=== PATIENT | male | born 1950 | race Caucasian/White ===

== ENCOUNTER 2016-08-15 06:13 | Observation (INO) | payer BC ==
[2016-08-14 11:24] VITALS: BP 122/86
[2016-08-14 11:52] LABS: HEMOGLOBIN 11.8 g/dL (13.7-18.0)
[2016-08-14 11:59] LABS: ASPARTATE AMINO TRANSFERASE 50 U/L (15-37); BLOOD UREA NITROGEN 13 mg/dL (7-18)
[~2016-08-15] VITALS: Ht 177.8 cm; Wt 81.8 kg
[~2016-08-15 06:13] MED LIST: AMIO200T42 PO; APIX5TAB PO; ASPI-496 PO; ATOR40TA78 PO; DIGO125T PO; METO25TA35 PO; TELM40TA PO
[2016-08-15] MEDS ORDERED: SODIUM CHLORIDE 0.9% 1,000 ML IV SCH (06:25)
[2016-08-15] MEDS ORDERED: HEPARIN 1,000 UNITS/ML, 10ML ONE (07:35)
[2016-08-15] MEDS ORDERED: FENTANYL PF 250 MCG/5ML ONE (07:43)
[2016-08-15] MEDS ORDERED: MIDAZOLAM 1 MG/ML, 2ML ONE (07:43)
[2016-08-15] MEDS ORDERED: DEXAMETHASONE 4 MG/ML, 1ML ONE (08:07)
[2016-08-15] MEDS ORDERED: SUCCINYLCHOLINE 20 MG/ML, 10ML ONE (08:07)
[2016-08-15] MEDS ORDERED: PHENYLEPHRINE 10 MG/ML ONE (08:07)
[2016-08-15] MEDS ORDERED: PROPOFOL 10 MG/ML, 20ML ONE (08:07)
[2016-08-15] MEDS ORDERED: ONDANSETRON 2MG/ML, 2ML ONE (08:07)
[2016-08-15] MEDS ORDERED: BUPIVACAINE 0.25% ONE (08:18)
[2016-08-15] MEDS ORDERED: PROTAMINE SULFATE 10 MG/ML, 5ML ONE (10:08)
[2016-08-15] MEDS ORDERED: ZOLPIDEM 5MG TABLET PO PRN (10:30)
[2016-08-15] MEDS ORDERED: ACETAMINOPHEN 325 MG TABLET PO PRN (10:30)
[2016-08-15] MEDS: APIXABAN 5 MG TABLET PO SCH ×2 (10:30→21:32)
[2016-08-15 12:25] VITALS: BP 124/86
[2016-08-15 13:19] VITALS: BP 111/76
[2016-08-15 18:59] VITALS: BP 119/77
[2016-08-15] MEDS ORDERED: ATORVASTATIN 40 MG TABLET PO SCH (21:00)
[2016-08-15] MEDS: METOPROLOL TARTRATE 25 MG TABLET PO SCH (21:32)
[2016-08-16 02:20] VITALS: BP 112/71
[2016-08-16 06:53] VITALS: BP 109/65
[2016-08-16] MEDS: METOPROLOL TARTRATE 25 MG TABLET PO SCH (08:22)
[2016-08-16] MEDS: APIXABAN 5 MG TABLET PO SCH (08:22)
[2016-08-16] MEDS ORDERED: AMIO200T42 PO (08:50)
[2016-08-16] MEDS ORDERED: ASPIRIN 81 MG TABLET EC PO SCH (09:00)
[2016-08-16] MEDS ORDERED: AMIODARONE 200 MG TABLET PO SCH (09:00)
[2016-08-16] MEDS ORDERED: PNEUMOCOCCAL 23 VACCINE IM-VACC ONE (11:00)
== END 2016-08-16 11:30 | disposition home or self-care (01) ==
LOC: CACL 06:13 → ORIP 10:22 → 5SO 12:17 → DCLOUNGE 08-16 11:28
PROVIDERS: ADMIT Internal Medicine Cardiovascular Disease; ATTEND Internal Medicine Cardiovascular Disease
DX: I48.91 Unspecified atrial fibrillation (principal); I10 Essential (primary) hypertension; E78.00 Pure hypercholesterolemia, unspecified; Z23 Encounter for immunization
CPT/HCPCS: 36415; 71020; 80053; 85025; 85347; 85610; 85730; 90471; 90732; 93005; 93308; 93321; 93325; 93613; 93655; 93656; 93662; C1730; C1731; C1732; C1759; C1766; C1894; G0378; J0330; J1100; J1644; J2250; J2370; J2405; J2704; J2720; J3010; J3490; 93621

== ENCOUNTER → 2019-08-10 | Day surgery (SDC) | payer MEDICARE, BC ==
[~2019-08-10] VITALS: Ht 177.8 cm; Wt 78.0 kg
[~2019-08-10] MED LIST changes: -DIGO125T PO; +DIGO125T85 PO; +METO50TA82 PO; +PROPOFOL 10 MG/ML, 20ML ONE; +SODIUM CHLORIDE 0.9% 500 ML IV PRN
[2019-08-10 11:26] VITALS: BP 126/75
[2019-08-10 11:49] LABS: ANION GAP 3 mmol/L (5-15); CALCIUM 8.7 mg/dL (8.5-10.1); CHLORIDE 108 mmol/L (98-107); CREATININE 1.26 mg/dL (0.7-1.3)
[2019-08-10 11:50] LABS: BASOPHILS # (AUTO) 0.02 x10^3/uL (0-0.1); BASOPHILS % (AUTO) 0 % (0-1); EOSINOPHILS # (AUTO) 0.14 x10^3/uL (0-0.4); EOSINOPHILS % (AUTO) 3 % (1-7); LYMPHOCYTES # (AUTO) 1.45 x10^3/uL (1-3.4); LYMPHOCYTES % (AUTO) 29 % (22-44); MD NO; MEAN CORPUSCULAR HEMOGLOBIN 31.7 pg (27.5-34.5); MEAN CORPUSCULAR HGB CONC 33.8 g/dL (33.2-36.2); MEAN CORPUSCULAR VOLUME 93.7 fL (81-97); MEAN PLATELET VOLUME 9.1 fL (7.4-10.4); MONOCYTES % (AUTO) 8 % (2-9); NEUTROPHILS # (AUTO) 2.98 x10^3/uL (1.8-6.8); NEUTROPHILS % (AUTO) 60 % (42-75); PLATELET COUNT 137 x10^3/uL (130-400); RED BLOOD COUNT 5.23 x10^6/uL (4.38-5.82); RED CELL DISTRIBUTION WIDTH 13.2 % (9.4-14.8)
== END | disposition home or self-care (01) ==
LOC: CACL 10:45
PROVIDERS: ATTEND Internal Medicine Cardiovascular Disease
DX: I48.20 Chronic atrial fibrillation, unspecified (principal); E78.5 Hyperlipidemia, unspecified; Z79.01 Long term (current) use of anticoagulants; Z79.899 Other long term (current) drug therapy
CPT/HCPCS: 36415; 71046; 80048; 85025; 92960; J2704

== ENCOUNTER 2020-04-01 11:08 | Observation (INO) | payer MEDICARE, BC ==
[~2020-04-01] VITALS: Ht 177.8 cm; Wt 77.5 kg
[~2020-04-01 11:08] MED LIST changes: -PROPOFOL 10 MG/ML, 20ML ONE; -SODIUM CHLORIDE 0.9% 500 ML IV PRN
[2020-04-01] MEDS ORDERED: SODIUM CHLORIDE 0.9% 1,000 ML IV SCH (12:30)
[2020-04-01] MEDS ORDERED: ASPI-191 PO (12:42)
[2020-04-01 12:56] VITALS: BP 115/76
[2020-04-01 12:57] LABS: ANION GAP 6 mmol/L (5-15); CALCIUM 8.9 mg/dL (8.5-10.1); CHLORIDE 107 mmol/L (98-107); CREATININE 1.34 mg/dL (0.7-1.3)
[2020-04-01 13:10] LABS: BASOPHILS % (AUTO) 0 % (0-1); EOSINOPHILS % (AUTO) 3 % (1-7); LYMPHOCYTES % (AUTO) 30 % (22-44); MEAN CORPUSCULAR HEMOGLOBIN 31.1 pg (27.5-34.5); MEAN CORPUSCULAR HGB CONC 33.4 g/dL (33.2-36.2); MONOCYTES % (AUTO) 7 % (2-9); NEUTROPHILS % (AUTO) 59 % (42-75); PLATELET COUNT 137 x10^3/uL (130-400); RED BLOOD COUNT 5.38 x10^6/uL (4.38-5.82); RED CELL DISTRIBUTION WIDTH 13.5 % (9.4-14.8)
[2020-04-01 13:11] LABS: MD NO
[2020-04-01] MEDS ORDERED: MIDAZOLAM 1 MG/ML, 2ML ONE (13:19)
[2020-04-01] MEDS ORDERED: FENTANYL PF 250 MCG/5ML ONE (13:20)
[2020-04-01] MEDS ORDERED: LIDOCAINE 1%, 20ML ONE (13:58)
[2020-04-01] MEDS ORDERED: DEXAMETHASONE 4 MG/ML, 1ML ONE (15:34)
[2020-04-01] MEDS ORDERED: PROPOFOL 10 MG/ML, 20ML ONE (15:34)
[2020-04-01] MEDS ORDERED: SUCCINYLCHOLINE 20 MG/ML, 10ML ONE (15:34)
[2020-04-01] MEDS ORDERED: ROCURONIUM 10MG/ML,5ML ONE (15:34)
[2020-04-01] MEDS ORDERED: ONDANSETRON 2MG/ML, 2ML ONE (15:34)
[2020-04-01] MEDS ORDERED: HEPARIN 1,000 UNITS/ML, 10ML ONE ×2 (15:34)
[2020-04-01] MEDS ORDERED: APIXABAN 5 MG TABLET ONE (15:56)
[2020-04-01] MEDS ORDERED: DIAZEPAM 5 MG/ML, 2ML IVPush PRN (16:00)
[2020-04-01] MEDS ORDERED: DIPHENHYDRAMINE 50 MG/ML, 1ML IVPush PRN (16:00)
[2020-04-01] MEDS ORDERED: MEPERIDINE/PF 25MG/0.5ML IVPush PRN (16:00)
[2020-04-01] MEDS ORDERED: OXYcodone 5 MG/5 ML ORAL.SOL UDC PO PRN (16:00)
[2020-04-01] MEDS ORDERED: EPHEDRINE 50 MG/ML, 1ML IM PRN (16:00)
[2020-04-01] MEDS ORDERED: ACETAMINOPHEN 325 MG TABLET PO PRN (16:00)
[2020-04-01] MEDS ORDERED: ONDANSETRON 2MG/ML, 2ML IVPush PRN (16:00)
[2020-04-01] MEDS ORDERED: APIXABAN 5 MG TABLET PO ONE (16:00)
[2020-04-01] MEDS ORDERED: EPHEDRINE 50 MG/ML, 1ML IVPush PRN (16:00)
[2020-04-01] MEDS ORDERED: LABETALOL 5MG/ML, 20ML IV PRN (16:00)
[2020-04-01] MEDS ORDERED: FENTANYL PF 100 MCG/2ML IV PRN (16:00)
[2020-04-01] MEDS ORDERED: morphine SULFATE 10 MG/ML, 1ML IVPush PRN (16:00)
[2020-04-01] MEDS ORDERED: PROMETHAZINE 25 MG/ML, 1ML IVPush PRN (16:00)
[2020-04-01 20:14] VITALS: BP 121/72
[2020-04-01] MEDS: APIXABAN 5 MG TABLET PO SCH (20:47)
[2020-04-01] MEDS ORDERED: ATORVASTATIN 40 MG TABLET PO SCH (21:00)
[2020-04-02 01:20] VITALS: BP 110/74
[2020-04-02 07:05] VITALS: BP 125/83
[2020-04-02] MEDS ORDERED: APIX5TAB PO (09:05)
[2020-04-02] MEDS: APIXABAN 5 MG TABLET PO SCH (09:47)
== END 2020-04-02 10:44 | disposition home or self-care (01) ==
LOC: CACL 11:08 → ORIP 15:36 → 5SO 17:27 → DCLOUNGE 04-02 10:41
PROVIDERS: ADMIT Internal Medicine Cardiovascular Disease; ATTEND Internal Medicine Cardiovascular Disease
DX: I48.91 Unspecified atrial fibrillation (principal); Z20.828 Contact with and (suspected) exposure to other viral communicable diseases; I48.4 Atypical atrial flutter; I10 Essential (primary) hypertension; E78.00 Pure hypercholesterolemia, unspecified; F10.10 Alcohol abuse, uncomplicated; Z79.82 Long term (current) use of aspirin; Z79.899 Other long term (current) drug therapy
CPT/HCPCS: 36415; 80048; 85025; 85347; 87635; 93306; 93462; 93613; 93621; 93653; 93662; C1730; C1732; C1759; C1766; C1893; C1894; G0378; J0330; J1100; J1644; J2250; J2405; J2704; J3010; J3490